=== PATIENT | male | born 1995 | race Caucasian/White ===

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

== ENCOUNTER 2017-07-15 15:00 | Emergency (ER) | payer MEDICAID ==
--- NOTE | 2017-07-15 15:21 | EDM.PDOCBH ---
ED HPI GENERAL MEDICAL PROBLEM - General Chief Complaint: Drug or Alcohol Abuse Stated Complaint: SEIZURE Time Seen by Provider: 07/15/17 15:00 Source of Information: Reports: Patient, Family History Limitations: Reports: No Limitations - History of Present Illness INITIAL COMMENTS - FREE TEXT/NARRATIVE: 21-year-old male has been feeling very anxious, muscle cramps, tremulous since doing some concentrated marijuana several hours earlier. This is happened to him "many times before". He does not feel short of breath. He is hyperventilating. No nausea or vomiting. He feels like his muscles hurt all over. Onset: Unknown/Unsure Duration: Hour(s): (Symptoms have been ongoing for the last 2 hours) Location: Reports: Generalized Severity: Moderate Associated Symptoms: Reports: Malaise, Other (Very anxious). Denies: Fever/ Chills, Headaches, Shortness of Breath Left Arm Pain Score (Numeric/FACES): 8 - Related Data Allergies Allergy/AdvReac Type Severity Reaction Status Date / Time No Known Allergies Allergy Verified 06/21/15 13:48 Home Meds: Home Meds FLUoxetine HCl [Fluoxetine HCl] 20 mg PO DAILY 06/21/15 [History] Past Medical History Musculoskeletal History: Reports: Other (See Below) Other Musculoskeletal History: CP Neurological History: Reports: Cerebral Palsy, Migraines Psychiatric History: Reports: Anxiety, Depression, Suicidal Ideation - Past Surgical History Cardiovascular Surgical History: Reports: Other (See Below) Musculoskeletal Surgical History: Reports: Other (See Below) Social & Family History - Tobacco Use Smoking Status *Q: Never Smoker Second Hand Smoke Exposure: No - Alcohol Use Days Per Week of Alcohol Use: 0 - Recreational Drug Use Recreational Drug Use: Yes Recreational Drug Type: Reports: Marijuana/Hashish Recreational Drug Use Frequency: Weekly ED ROS GENERAL - Review of Systems Review Of Systems: See Below Constitutional: Reports: Malaise. Denies: Fever, Chills HEENT: Reports: No Symptoms Respiratory: Denies: Shortness of Breath, Cough Cardiovascular: Reports: Palpitations. Denies: Chest Pain GI/Abdominal: Denies: Abdominal Pain, Nausea, Vomiting : Reports: No Symptoms Musculoskeletal: Reports: Muscle Pain Skin: Reports: No Symptoms Neurological: Denies: Headache Psychiatric: Reports: Anxiety ED EXAM, BEHAVIORAL HEALTH - Physical Exam Exam: See Below Exam Limited By: No Limitations General Appearance: Alert, Anxious, Mild Distress (Patient appears very uncomfortable) Eye Exam: Bilateral Eye: Other (Bilateral scleral injection) Head: Atraumatic Respiratory/Chest: No Respiratory Distress, Lungs Clear Cardiovascular: Tachycardia GI/Abdominal: Non-Tender Extremities: Normal Inspection. No: Pedal Edema Neurological: Alert, Oriented x 3 Psychiatric: Tearful, Agitated COURSE, BEHAVIORAL HEALTH COMP - Course Vital Signs: Last Vital Signs Temp 99.0 F 07/15/17 15:04 Pulse 118 H 07/15/17 15:34 Resp 26 H 07/15/17 15:34 BP 153/81 H 07/15/17 15:34 Pulse Ox 97 07/15/17 15:34 Orders, Labs, Meds: Laboratory Tests 07/15/17 Range/Units 15:14 Puncture Site Lt.radial ABG pH 7.576 H (7.350-7.450) ABG pCO2 24.1 L (35.0-42.0) mmHg ABG pO2 115.0 H (75.0-100.0) mmHg ABG HCO3 22.4 (22.0-26.0) mmol/L ABG Total CO2 18.4 L (23.0-27.0) mmol/L ABG O2 Saturation 99.3 H (95.0-98.0) % ABG O2 Content 22.4 (15.0-23.0) %vol ABG Base Excess 2.4 mm/L ABG Hemoglobin 16.2 (13.5-18.0) g/dL ABG Oxyhemoglobin 97.6 % ABG Carboxyhemoglobin 1.1 (0.0-1.6) % ABG Methemoglobin 0.6 % Gallito Test Passed O2 Delivery Device Room air Medications Discontinued Medications Generic Name Dose Route Start Last Admin Trade Name Freq PRN Reason Stop Dose Admin Lorazepam 1 mg 07/15/17 15:35 07/15/17 15:50 Ativan IM 07/15/17 15:36 1 mg ONETIME ONE Administration Re-Assessment/Re-Exam: Patient was offered a paper bag for rebreathing and ABGs were obtained. ABGs confirmed hyperventilation. Patient did start to improve but still remained pretty agitated so he was given 1 mg of Ativan IM. Was discharged to care of his mother. Departure - Departure Time of Disposition: 15:56 Disposition: Home, Self-Care 01 Condition: Fair Clinical Impression: Acute hyperventilation syndrome, Cannabis abuse - Discharge Information Instructions: Hyperventilation, Cannabis Use Disorder Referrals: Benitez Aguilar MD [Primary Care Provider] - Forms: ED Department Discharge Care Plan Goals: Rest this afternoon and avoid drug abuse in the future.
[2017-07-15] MEDS ORDERED: LORazepam 2 MG/ML MDV IM ONE (15:35)
[2017-07-15 15:37] VITALS: BP 153/81
== END 2017-07-15 15:56 | disposition home or self-care (01) ==
LOC: JP.ED 15:00
DX: F45.8 Other somatoform disorders (principal); F12.10 Cannabis abuse, uncomplicated
CPT/HCPCS: 36600; 82803; 96372; 99285; J2060

== ENCOUNTER 2018-01-03 23:30 | Emergency (ER) | payer MEDICAID, MEDICARE ==
--- NOTE | 2018-01-04 00:20 | EDM.PDOC ---
ED HPI GENERAL MEDICAL PROBLEM - General Chief Complaint: ENT Problem Stated Complaint: MEDICAL Time Seen by Provider: 01/03/18 23:32 Source of Information: Reports: Patient, Family (Sister) History Limitations: Reports: No Limitations - History of Present Illness INITIAL COMMENTS - FREE TEXT/NARRATIVE: Uvula swollen: This is a 22 year old male presents to ER with his Sister, reports he was painting on canvas this evening, when he has a sudden onset of uvula swelling. He reports he googled swollen uvula, became concerns and came to ER for evaluation. mouth; sudden onset of uvula edema approximately 1.5 hours before arrival, denies throat tightness or feeling of airway tightness denies voice changes denies fever or chills denies exposure to strep or other illness, no family members are ill. denies any allergies. Onset: Sudden Onset Date: 01/03/18 Onset Time: 22:00 Duration: Hour(s):, Constant Location: Reports: Other (uvula) Quality: Reports: Other (edema without pain.) Severity: Moderate Improves with: Reports: None Worsens with: Reports: None Associated Symptoms: Reports: No Other Symptoms uvula Pain Score (Numeric/FACES): 5 - Related Data Allergies Allergy/AdvReac Type Severity Reaction Status Date / Time No Known Allergies Allergy Verified 01/03/18 23:43 Home Meds: Home Meds NK [No Known Home Meds] 01/03/18 [History] Past Medical History Respiratory History: Reports: Other (See Below) Other Respiratory History: RSV A BABY Gastrointestinal History: Reports: Gastritis, Helicobacter Pylori Musculoskeletal History: Reports: Other (See Below) Other Musculoskeletal History: CP Neurological History: Reports: Cerebral Palsy, Migraines Psychiatric History: Reports: Anxiety, Depression, Suicidal Ideation - Past Surgical History Cardiovascular Surgical History: Reports: Other (See Below) Musculoskeletal Surgical History: Reports: Other (See Below) Other Musculoskeletal Surgeries/Procedures:: LEG surgery Social & Family History - Family History Family Medical History: Noncontributory - Tobacco Use Smoking Status *Q: Current Every Day Smoker Years of Tobacco use: 1 Packs/Tins Daily: 0.5 - Caffeine Use Caffeine Use: Reports: Soda - Recreational Drug Use Recreational Drug Use: No - Living Situation & Occupation Living situation: Reports: Single, with Family (lives one block from the hospital.) ED ROS ENT - Review of Systems Review Of Systems: See Below Constitutional: Reports: Other (swollen uvula.) HEENT: Reports: Throat Swelling (uvula only. no tonsillar edema or exudate) Respiratory: Reports: No Symptoms Cardiovascular: Reports: No Symptoms Endocrine: Reports: No Symptoms GI/Abdominal: Reports: No Symptoms : Reports: No Symptoms Musculoskeletal: Reports: No Symptoms Skin: Reports: No Symptoms Neurological: Reports: No Symptoms Psychiatric: Reports: Anxiety (concerns of bad outcome after "Google" symptoms.) Hematologic/Lymphatic: Reports: No Symptoms Immunologic: Reports: No Symptoms ED EXAM, ENT - Physical Exam Exam: See Below Exam Limited By: No Limitations General Appearance: Alert, WD/WN, No Apparent Distress, Thin Eye Exam: Bilateral Eye: Normal Inspection Ears: Normal External Exam, Normal Canal, Hearing Grossly Normal, Normal TMs Nose: Normal Inspection, Normal Mucousa, No Blood Mouth/Throat: Normal Gums, Normal Lips, Normal Teeth, Uvular Edema (uvula is bright red and edematous, no exudate, touching the tongue. voice normal.) Head: Atraumatic, Normocephalic Neck: Normal Inspection, Supple, Non-Tender, Full Range of Motion Respiratory/Chest: No Respiratory Distress, Lungs Clear, Normal Breath Sounds, No Accessory Muscle Use, Chest Non-Tender Cardiovascular: Normal Peripheral Pulses, Regular Rate, Rhythm, No Edema, No Gallop, No JVD, No Murmur, No Rub GI/Abdominal: Normal Bowel Sounds, Soft, Non-Tender Back: Normal Inspection, Full Range of Motion Extremities: Normal Inspection, Normal Range of Motion, Non-Tender, No Pedal Edema, Normal Capillary Refill Neurological: Alert, Oriented, CN II-XII Intact, Normal Cognition, Normal Gait, Normal Reflexes, No Motor/Sensory Deficits Psychiatric: Normal Affect, Anxious Skin: Warm, Dry, Intact, Normal Color, No Rash Lymphatic: No Adenopathy Course - Vital Signs Last Recorded V/S: Last Vital Signs Temp 36.8 C 01/03/18 23:45 Pulse 72 01/03/18 23:45 Resp 16 01/03/18 23:45 BP 180/106 H 01/03/18 23:45 Pulse Ox 98 01/03/18 23:45 - Orders/Labs/Meds Orders: Active Orders 24 hr Category Date Time Status STREP SCRN A RAPID W CULT CONF [RM] Stat Lab 01/03/18 23:42 Ordered cefTRIAXone [Rocephin] 1 gm Med 01/04/18 00:10 Active Sodium Chloride 0.9% [Normal Saline] 50 ml IV ONETIME Medication Orders Ceftriaxone Sodium 1 gm/ (Sodium Chloride) 50 mls @ 100 mls/hr IV ONETIME ONE Stop: 01/04/18 00:39 Last Admin: 01/04/18 00:29 Dose: 100 mls/hr Meds: Medications Generic Name Dose Route Start Last Admin Trade Name Freq PRN Reason Stop Dose Admin Ceftriaxone Sodium 1 gm/ 50 mls @ 100 mls/hr 01/04/18 00:10 01/04/18 00:29 Sodium Chloride IV 01/04/18 00:39 100 mls/hr ONETIME ONE Administration Discontinued Medications Generic Name Dose Route Start Last Admin Trade Name Freq PRN Reason Stop Dose Admin Diphenhydramine HCl 25 mg 01/04/18 00:10 01/04/18 00:27 Benadryl IVPUSH 01/04/18 00:11 25 mg ONETIME ONE Administration Methylprednisolone Sodium Succinate 125 mg 01/04/18 00:10 01/04/18 00:25 Solu-Medrol IVPUSH 01/04/18 00:11 125 mg ONETIME ONE Administration - Re-Assessments/Exams Free Text/Narrative Re-Assessment/Exam: 01/04/18 00:23 discussed with Osmany and his Sister, will treat for both bacteria or allergic reaction causing uvula edema. medications; IV Benadryl 25 mg., IV soludmedrol 125mg, IV Rocephin. labs; rapid strep pending. Osmany and Sister agree with plan of care. 01/04/18 00:37 rapid strep negative, await throat culture will discharge to home with Medrol dose pack, benadryl 25mg po every 6 hrs, keflex 500mg tid x 7days. advised to follow up with Primary Care on Friday, return to ER sooner for any changes or concerns. Departure - Departure Time of Disposition: 00:41 Disposition: Home, Self-Care 01 Condition: Good Clinical Impression: Uvular edema - Discharge Information *PRESCRIPTION DRUG MONITORING PROGRAM REVIEWED*: Not Applicable Referrals: PCP,None [Primary Care Provider] - Forms: ED Department Discharge Care Plan Goals: Uvula edema -rapid strep negative, throat culture pending will treat for bacteria vs allergic response. -Medrol dose pack, start in morning, take as directed -Benadryl 25mg take one every 6 hours for next 2 days then as needed -Keflex 500mg po three times a day for 7 days -advised on soft bland diet, no crunchy, salty, spicy, acid foods, drinks or snacks for 3 days, then advance diet as tolerated. Follow up in Primary Care for recheck on Friday, return to ER for any increased swelling, pain, fever,chills, rash, nausea, vomiting or not improved - Problem List & Annotations (1) Uvular edema SNOMED Code(s): 705244593 Code(s): K13.79 - OTHER LESIONS OF ORAL MUCOSA Status: Acute Priority: High Current Visit: Yes - Problem List Review Problem List Initiated/Reviewed/Updated: Yes - My Orders Last 24 Hours: My Active Orders 01/03/18 23:42 STREP SCRN A RAPID W CULT CONF [RM] Stat 01/04/18 00:10 cefTRIAXone [Rocephin] 1 gm Sodium Chloride 0.9% [Normal Saline] 50 ml IV ONETIME - Assessment/Plan Last 24 Hours: My Active Orders 01/03/18 23:42 STREP SCRN A RAPID W CULT CONF [RM] Stat 01/04/18 00:10 cefTRIAXone [Rocephin] 1 gm Sodium Chloride 0.9% [Normal Saline] 50 ml IV ONETIME Plan: Uvula edema -rapid strep negative, will await throat culture will treat for bacteria vs allergic -Medrol dose pack, start in morning, take as directed -Benadryl 25mg take one every 6 hours for next 2 days then as needed -Keflex 500mg po three times a day for 7 days -advised on soft bland diet, no crunchy, salty, spicy, acid foods, drinks or snacks for 3 days, then advance diet as tolerated. Follow up in Primary Care for recheck on Friday, return to ER for any increased swelling, pain, fever,chills, rash, nausea, vomiting or not improved
[2018-01-04] MEDS: methylPREDNISolone Sodium Succinate 125 MG/2 ML SDV IVPUSH ONE (00:25)
[2018-01-04] MEDS: diphenhydrAMINE 50 MG/ML SDV IVPUSH ONE (00:27)
[2018-01-04] MEDS: cefTRIAXone 1 GM in Sodium Chloride 0.9% 50 ML IV ONE (00:29)
[2018-01-04 00:52] VITALS: BP 180/106
== END 2018-01-04 01:05 | disposition home or self-care (01) ==
LOC: JP.ED 23:30
DX: R60.0 Localized edema (principal); F17.210 Nicotine dependence, cigarettes, uncomplicated
CPT/HCPCS: 87081; 87430; 96365; 96375; 99284; J0696; J1200; J2930; J7050

== ENCOUNTER 2018-10-10 22:22 | Emergency (ER) | payer MEDICARE, MEDICAID ==
[2018-10-10 22:43] VITALS: BP 186/157
--- NOTE | 2018-10-10 22:57 | EDM.PDOC ---
ED HPI GENERAL MEDICAL PROBLEM - General Chief Complaint: Back Pain or Injury Stated Complaint: BACK/HIP PAIN NOT AN ACCIDENT Time Seen by Provider: 10/10/18 22:45 Source of Information: Reports: Patient History Limitations: Reports: No Limitations - History of Present Illness INITIAL COMMENTS - FREE TEXT/NARRATIVE: pt is having severe muscle spasm particularly on the rt side of his body. The is has been going on for the past 36 hours. He is going to the br frequently and then he is not voiding. He has not been drinking water for the past 2 weeks. He does have urethral discharge. He denies recent sexual activity. Onset: Other (last 2 days. ) Duration: Hour(s): Location: Reports: Back, Upper Extremity, Right, Lower Extremity, Right Associated Symptoms: Reports: No Other Symptoms low back Pain Score (Numeric/FACES): 7 - Related Data Allergies Allergy/AdvReac Type Severity Reaction Status Date / Time No Known Allergies Allergy Verified 05/07/18 15:40 Home Meds: Home Meds NK [No Known Home Meds] 01/03/18 [History] Past Medical History Cardiovascular History: Reports: None Respiratory History: Reports: Other (See Below) Other Respiratory History: RSV A BABY Gastrointestinal History: Reports: Gastritis, Helicobacter Pylori Musculoskeletal History: Reports: Other (See Below) Other Musculoskeletal History: CP Neurological History: Reports: Cerebral Palsy, Migraines Psychiatric History: Reports: Anxiety, Depression, Suicidal Ideation - Past Surgical History Head Surgeries/Procedures: Reports: None Cardiovascular Surgical History: Reports: Other (See Below) Respiratory Surgical History: Reports: None GI Surgical History: Reports: None Neurological Surgical History: Reports: None Musculoskeletal Surgical History: Reports: Other (See Below) Other Musculoskeletal Surgeries/Procedures:: LEG surgery Dermatological Surgical History: Reports: None Social & Family History - Family History Family Medical History: Noncontributory - Tobacco Use Smoking Status *Q: Current Every Day Smoker Years of Tobacco use: 2 Packs/Tins Daily: 1 - Caffeine Use Caffeine Use: Reports: Energy Drinks, Soda - Alcohol Use Days Per Week of Alcohol Use: 2 Number of Drinks Per Day: 6 Total Drinks Per Week: 12 - Recreational Drug Use Recreational Drug Use: Yes Drug Use in Last 12 Months: Yes Recreational Drug Type: Reports: Ecstasy, Marijuana/Hashish Recreational Drug Use Frequency: Weekly - Living Situation & Occupation Living situation: Reports: Single, with Family (lives one block from the hospital.) ED ROS GENERAL - Review of Systems Review Of Systems: See Below Constitutional: Reports: No Symptoms HEENT: Reports: No Symptoms Respiratory: Reports: No Symptoms Cardiovascular: Reports: No Symptoms Endocrine: Reports: No Symptoms GI/Abdominal: Reports: No Symptoms : Reports: Dysuria, Frequency, Other ( penile discharge. ) Musculoskeletal: Reports: Muscle Pain, Other (pt is having marked muscle spasm. ) Skin: Reports: No Symptoms ED EXAM, UPPER BACK/NECK PAIN - Physical Exam Exam: See Below Text/Narrative:: pt is very agitated appearing. He is having marked muscle spasm in the upper and lower rt extremities. He has urinary frequency and then he is not able to void when he gets there. He did take ectascy yesterday. He also has been taking extra adderal. Exam Limited By: No Limitations General Appearance: Alert, Moderate Distress Ears Exam: Normal TMs Nose Exam: Normal Inspection Throat/Mouth Exam: Normal Inspection Head Exam: Atraumatic Neck Exam: Non-Tender Cardiovascular/Respiratory: Regular Rate, Rhythm GI/Abdominal: Soft, Non-Tender (Male) Exam: Other (pt has discharge from the penis a GC and chlamydia culture was done. ) Rectal (Males) Exam: Deferred Back Exam: Muscle Spasm Extremities: Normal Inspection, Other (muscle spasm. ) Neurologic: Alert, Oriented x 3 Psychiatric: Anxious, Other (pt is spacing and appears not to be able to relax. ) Course - Vital Signs Last Recorded V/S: Last Vital Signs Temp 37.6 C 10/10/18 22:41 Pulse 99 10/10/18 22:41 Resp 20 10/10/18 22:41 BP 186/157 H 10/10/18 22:41 Pulse Ox 100 10/10/18 22:41 - Orders/Labs/Meds Orders: Active Orders 24 hr Category Date Time Status Bladder Scan [RC] ASDIRECTED Care 10/10/18 23:35 Active CHLAMYDIA/GC AMPLIFICATION Stat Lab 10/11/18 00:14 Received CULTURE URINE [RM] Stat Lab 10/11/18 00:05 Received Sodium Chloride 0.9% [Normal Saline] 1,000 ml Med 10/10/18 23:30 Active IV ASDIRECTED Sodium Chloride 0.9% [Normal Saline] 1,000 ml Med 10/10/18 23:45 Active IV ASDIRECTED Medication Orders Sodium Chloride (Normal Saline) 1,000 mls @ 999 mls/hr IV ASDIRECTED NÉSTOR Last Admin: 10/10/18 23:41 Dose: 999 mls/hr Sodium Chloride (Normal Saline) 1,000 mls @ 999 mls/hr IV ASDIRECTED NÉSTOR Last Admin: 10/11/18 00:42 Dose: 999 mls/hr Labs: Laboratory Tests 10/10/18 10/10/18 10/11/18 Range/Units 23:00 23:00 00:10 WBC 10.5 (4.5-11.0) K/uL RBC 5.54 (4.30-5.90) M/uL Hgb 16.2 H (12.0-15.0) g/dL Hct 47.6 (40.0-54.0) % MCV 86 (80-98) fL MCH 29 (27-31) pg MCHC 34 (32-36) % Plt Count 252 (150-400) K/uL Neut % (Auto) 63 (36-66) % Lymph % (Auto) 26 (24-44) % Moca % (Auto) 9 H (2-6) % Eos % (Auto) 2 (2-4) % Baso % (Auto) 0 (0-1) % Sodium 140 (140-148) mmol/L Potassium 4.3 (3.6-5.2) mmol/L Chloride 103 (100-108) mmol/L Carbon Dioxide 26 (21-32) mmol/L Anion Gap 10.7 (5.0-14.0) mmol/L BUN 12 (7-18) mg/dL Creatinine 1.1 (0.8-1.3) mg/dL Est Cr Clr Drug Dosing 103.48 mL/min Estimated GFR (MDRD) > 60 (>60) Glucose 99 (74-106) mg/dL Calcium 9.5 (8.5-10.1) mg/dL Total Bilirubin 1.1 H (0.2-1.0) mg/dL AST 28 (15-37) U/L ALT 76 D (12-78) U/L Alkaline Phosphatase 96 (46-116) U/L Total Protein 8.0 (6.4-8.2) g/dL Albumin 4.6 (3.4-5.0) g/dL Globulin 3.4 (2.3-3.5) g/dL Albumin/Globulin Ratio 1.4 (1.2-2.2) Urine Color Yellow Urine Appearance Clear Urine pH 5.0 (4.5-8.0) Ur Specific [place] 1.025 (1.008-1.030) Urine Protein Negative (NEGATIVE) mg/dL Urine Glucose (UA) Normal (NEGATIVE) mg/dL Urine Ketones Negative (NEGATIVE) mg/dL Urine Occult Blood Negative (NEGATIVE) Urine Nitrite Negative (NEGAITVE) Urine Bilirubin Negative (NEGATIVE) Urine Urobilinogen Normal (NORMAL) mg/dL Ur Leukocyte Esterase Negative (NEGATIVE) Urine RBC 0-5 (0-5) Urine WBC 5-10 H (0-5) Ur Epithelial Cells Rare Amorphous Sediment Not seen Urine Bacteria Few Urine Mucus Not seen Urine Opiates Screen (NEGATIVE) Ur Oxycodone Screen (NEGATIVE) Urine Methadone Screen (NEGATIVE) Ur Propoxyphene Screen (NEGATIVE) Ur Barbiturates Screen (NEGATIVE) Ur Tricyclics Screen (NEGATIVE) Ur Phencyclidine Scrn (NEGATIVE) Ur Amphetamine Screen (NEGATIVE) U Methamphetamines Scrn (NEGATIVE) Urine MDMA Screen (NEGATIVE) U Benzodiazepines Scrn (NEGATIVE) U Cocaine Metab Screen (NEGATIVE) U Marijuana (THC) Screen (NEGATIVE) 10/11/18 Range/Units 00:10 WBC (4.5-11.0) K/uL RBC (4.30-5.90) M/uL Hgb (12.0-15.0) g/dL Hct (40.0-54.0) % MCV (80-98) fL MCH (27-31) pg MCHC (32-36) % Plt Count (150-400) K/uL Neut % (Auto) (36-66) % Lymph % (Auto) (24-44) % Moca % (Auto) (2-6) % Eos % (Auto) (2-4) % Baso % (Auto) (0-1) % Sodium (140-148) mmol/L Potassium (3.6-5.2) mmol/L Chloride (100-108) mmol/L Carbon Dioxide (21-32) mmol/L Anion Gap (5.0-14.0) mmol/L BUN (7-18) mg/dL Creatinine (0.8-1.3) mg/dL Est Cr Clr Drug Dosing mL/min Estimated GFR (MDRD) (>60) Glucose (74-106) mg/dL Calcium (8.5-10.1) mg/dL Total Bilirubin (0.2-1.0) mg/dL AST (15-37) U/L ALT (12-78) U/L Alkaline Phosphatase (46-116) U/L Total Protein (6.4-8.2) g/dL Albumin (3.4-5.0) g/dL Globulin (2.3-3.5) g/dL Albumin/Globulin Ratio (1.2-2.2) Urine Color Urine Appearance Urine pH (4.5-8.0) Ur Specific [place] (1.008-1.030) Urine Protein (NEGATIVE) mg/dL Urine Glucose (UA) (NEGATIVE) mg/dL Urine Ketones (NEGATIVE) mg/dL Urine Occult Blood (NEGATIVE) Urine Nitrite (NEGAITVE) Urine Bilirubin (NEGATIVE) Urine Urobilinogen (NORMAL) mg/dL Ur Leukocyte Esterase (NEGATIVE) Urine RBC (0-5) Urine WBC (0-5) Ur Epithelial Cells Amorphous Sediment Urine Bacteria Urine Mucus Urine Opiates Screen Negative (NEGATIVE) Ur Oxycodone Screen Negative (NEGATIVE) Urine Methadone Screen Negative (NEGATIVE) Ur Propoxyphene Screen Negative (NEGATIVE) Ur Barbiturates Screen Negative (NEGATIVE) Ur Tricyclics Screen Negative (NEGATIVE) Ur Phencyclidine Scrn Negative (NEGATIVE) Ur Amphetamine Screen Presumptive positive H (NEGATIVE) U Methamphetamines Scrn Presumptive positive H (NEGATIVE) Urine MDMA Screen Negative (NEGATIVE) U Benzodiazepines Scrn Negative (NEGATIVE) U Cocaine Metab Screen Negative (NEGATIVE) U Marijuana (THC) Screen Presumptive positive H (NEGATIVE) Meds: Medications Generic Name Dose Route Start Last Admin Trade Name Freq PRN Reason Stop Dose Admin Sodium Chloride 1,000 mls @ 999 mls/hr 10/10/18 23:30 10/10/18 23:41 Normal Saline IV 999 mls/hr ASDIRECTED NÉSTOR Administration Sodium Chloride 1,000 mls @ 999 mls/hr 10/10/18 23:45 10/11/18 00:42 Normal Saline IV 999 mls/hr ASDIRECTED NÉSTOR Administration Discontinued Medications Generic Name Dose Route Start Last Admin Trade Name Freq PRN Reason Stop Dose Admin Baclofen 10 mg 10/10/18 23:23 10/10/18 23:43 Lioresal PO 10/10/18 23:24 10 mg ONETIME ONE Administration Ceftriaxone Sodium 1 gm/ 50 mls @ 100 mls/hr 10/11/18 01:06 Sodium Chloride IV 10/11/18 01:35 ONETIME ONE Ketorolac Tromethamine 60 mg 10/10/18 23:25 Toradol IM 10/10/18 23:26 ONETIME ONE Ketorolac Tromethamine 30 mg 10/10/18 23:26 10/10/18 23:45 Toradol IVPUSH 10/10/18 23:27 30 mg ONETIME ONE Administration Lorazepam 0.5 mg 10/11/18 00:12 10/11/18 00:42 Ativan PO 10/11/18 00:13 0.5 mg ONETIME ONE Administration - Re-Assessments/Exams Free Text/Narrative Re-Assessment/Exam: 10/11/18 01:41 pt was hydrated with 2 liters of fluid. He was given belofen and torodol and did get some relief. He has a chlamydia and GC culture pending. He has a urine culture pending. Departure - Departure Time of Disposition: 01:37 Disposition: Home, Self-Care 01 Condition: Fair Clinical Impression: Dehydration, Urethritis, UTI (urinary tract infection), Drug abuse - Discharge Information Referrals: PCP,None [Primary Care Provider] - Forms: ED Department Discharge Care Plan Goals: push fluids, baclofen 10mg bid to relax muscles, doxycyline 100mg bid for [address] - My Orders Last 24 Hours: My Active Orders 10/10/18 23:30 Sodium Chloride 0.9% [Normal Saline] 1,000 ml IV ASDIRECTED 10/10/18 23:35 Bladder Scan [RC] ASDIRECTED 10/10/18 23:45 Sodium Chloride 0.9% [Normal Saline] 1,000 ml IV ASDIRECTED 10/11/18 00:05 CULTURE URINE [RM] Stat 10/11/18 00:14 CHLAMYDIA/GC AMPLIFICATION Stat - Assessment/Plan Last 24 Hours: My Active Orders 10/10/18 23:30 Sodium Chloride 0.9% [Normal Saline] 1,000 ml IV ASDIRECTED 10/10/18 23:35 Bladder Scan [RC] ASDIRECTED 10/10/18 23:45 Sodium Chloride 0.9% [Normal Saline] 1,000 ml IV ASDIRECTED 10/11/18 00:05 CULTURE URINE [RM] Stat 10/11/18 00:14 CHLAMYDIA/GC AMPLIFICATION Stat
[2018-10-10] MEDS ORDERED: Baclofen 10 MG Tab PO ONE (23:23)
[2018-10-10] MEDS ORDERED: Ketorolac 60 MG/2 ML SDV IM ONE (23:25)
[2018-10-10] MEDS ORDERED: Ketorolac 30 MG/ML SDV IVPUSH ONE (23:26)
[2018-10-10] MEDS ORDERED: Sodium Chloride 0.9% 1,000 ML IV SCH ×2 (23:30→23:45)
[2018-10-11] MEDS ORDERED: LORazepam 0.5 MG Tab PO ONE (00:12)
[2018-10-11] MEDS ORDERED: cefTRIAXone 1 GM in Sodium Chloride 0.9% 50 ML IV ONE (01:06)
[2018-10-14 01:08] LABS: CHLAMYDIA TRACHOMATIS, NAA Positive (Negative); NEISSERIA GONORRHOEAE, NAA Negative (Negative)
== END 2018-10-11 01:50 | disposition home or self-care (01) ==
LOC: JP.ED 22:22
DX: N34.2 Other urethritis (principal); F17.210 Nicotine dependence, cigarettes, uncomplicated; E86.0 Dehydration; F15.10 Other stimulant abuse, uncomplicated
CPT/HCPCS: 36415; 51798; 80053; 80305; 81001; 85025; 87086; 87491; 87591; 99283; A9270; J1885; J7030

== ENCOUNTER 2019-06-18 23:48 | Emergency (ER) | payer MEDICAID, MEDICARE ==
[2019-06-19 00:15] VITALS: BP 159/97; PULSE 104
--- NOTE | 2019-06-19 00:29 | EDM.PDOC ---
ED HPI GENERAL MEDICAL PROBLEM - General Chief Complaint: Upper Extremity Injury/Pain Stated Complaint: NO FEELING IN LEFT ARM Time Seen by Provider: 06/19/19 00:20 Source of Information: Reports: Patient History Limitations: Reports: No Limitations - History of Present Illness INITIAL COMMENTS - FREE TEXT/NARRATIVE: Patient presents for evaluation of left shoulder and arm pain and tingling after falling on slippery steps outside and bracing his fall with his left arm. He was going down some steps and slipped on the falling toward the steps but putting his left arm out behind him and to the side to keep from landing on the edge of the steps. This occurred approximately 2345 hours on 18 June. He feels pain in the proximal portion of the arm, that is the humerus region. There is also pain and what he says is numbness but what he means is tingling sensations across the proximal arm and superior area of left shoulder region. His ring and little finger have some pain and tingling feeling, the ring finger more so. He did not injure the right arm and shoulder at all. He is left-handed and he is able to use his arm and in fact was holding his cell phone in his left hand and texting with his right hand when I entered the room. He has no limitation of motion. He does have a history of cerebral palsy. He has not taken anything for the arm symptoms tonight. No other injuries as a result of his fall. - Related Data Allergies Allergy/AdvReac Type Severity Reaction Status Date / Time No Known Allergies Allergy Verified 05/07/18 15:40 Home Meds: Home Meds NK [No Known Home Meds] 01/03/18 [History] Past Medical History Cardiovascular History: Reports: None Respiratory History: Reports: Other (See Below) Other Respiratory History: RSV A BABY Gastrointestinal History: Reports: Gastritis, Helicobacter Pylori Musculoskeletal History: Reports: Other (See Below) Other Musculoskeletal History: CP Neurological History: Reports: Cerebral Palsy, Migraines Psychiatric History: Reports: Anxiety, Depression, Suicidal Ideation - Past Surgical History Head Surgeries/Procedures: Reports: None Cardiovascular Surgical History: Reports: Other (See Below) Respiratory Surgical History: Reports: None GI Surgical History: Reports: None Neurological Surgical History: Reports: None Musculoskeletal Surgical History: Reports: Other (See Below) Other Musculoskeletal Surgeries/Procedures:: LEG surgery Dermatological Surgical History: Reports: None Social & Family History - Family History Family Medical History: Noncontributory - Tobacco Use Smoking Status *Q: Former Smoker Used Tobacco, but Quit: Yes Month/Year Tobacco Last Used: 04/2019 - Caffeine Use Caffeine Use: Reports: Soda - Alcohol Use Days Per Week of Alcohol Use: 1 Number of Drinks Per Day: 5 Total Drinks Per Week: 5 - Recreational Drug Use Recreational Drug Use: No - Living Situation & Occupation Living situation: Reports: Single, with Family (lives one block from the hospital.) Review of Systems - Review of Systems Review Of Systems: See Below Constitutional: Reports: No Symptoms Respiratory: Reports: No Symptoms Musculoskeletal: Reports: Shoulder Pain, Hand Pain Neurological: Reports: Tingling (Superior aspect of left shoulder, medial proximal left bicep region, left ring finger.). Denies: Numbness Psychiatric: Reports: Anxiety ED EXAM, GENERAL - Physical Exam Exam: See Below Free Text/Narrative:: He is seated on the bed in room 7 and as noted previously is able to hold onto his cell phone with fingers of the left hand and use the other hand to perform galvez motions. Exam Limited By: No Limitations General Appearance: Alert, Anxious Peripheral Pulses: 4+: Brachial (L), Radial (L) Extremities: Normal Range of Motion, Normal Capillary Refill, Arm Pain ( Palpation of the left shoulder during passive extension and flexion and abduction movements does not show any crepitus. There is pain with palpation along the medial proximal left bicep/tricep region. There is pain on palpation across the left supraspinatus region. 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 There is some minimal discomfort across the humeral head region but my suspicion for fracture is quite low. I discussed using cold packs and anti-inflammatory medication and giving things time to heal. I could tell that that was not a completely satisfactory answer and he requested that we do an x-ray of the shoulder for his further peace of mind. 06/19/19 01:06 On review of the left shoulder x-ray, there is some minimal widening of the acromioclavicular joint but otherwise no acute bony injury. Departure - Departure Time of Disposition: 01:07 Disposition: Home, Self-Care 01 Condition: Good Clinical Impression: Left shoulder strain, Acromioclavicular (joint) (ligament) sprain - Discharge Information *PRESCRIPTION DRUG MONITORING PROGRAM REVIEWED*: Not Applicable *COPY OF PRESCRIPTION DRUG MONITORING REPORT IN PATIENT KANWAL: Not Applicable Instructions: Muscle Strain, [id number] Referrals: PCP,None [Primary Care Provider] - Additional Instructions: It is possible that your shoulder and chest area will be more sore over the next couple of days before it begins to improve. I recommended using cold packs 20 minutes off and on as needed to the painful area. Wear the arm sling to reduce left shoulder movement, including wearing at while you are sleeping at night. Ibuprofen 800 mg 3 times a day or naproxen (Aleve) 440 mg 2 or 3 times a day regularly for the next week will be helpful. If not improving in one week, recheck with primary care. Return to ER if feeling worse in anyway but I would expect symptoms will gradually improve. Sepsis Event Note - Evaluation Sepsis Screening Result: No Definite Risk - Focused Exam Vital Signs: Vital Signs Temp Pulse Resp BP Pulse Ox 06/19/19 00:09 36.7 C 104 H 14 159/97 H 98 Date Exam was Performed: 06/19/19 Time Exam was Performed: 00:20
--- NOTE | 2019-06-19 01:09 | CRLCR ---
Indication: Pain after fall Technique: Two views, 3 films left shoulder Comparison: None Findings: Bones: Alignment is normal. No fractures or bone lesions. Joint spaces: Unremarkable. Soft tissues: Unremarkable. Dictated by Magnus Bah MD @ Jun 19 2019 1:05AM Signed by Dr. Magnus Bah @ Jun 19 2019 1:07AM
== END 2019-06-19 01:24 | disposition home or self-care (01) ==
LOC: JP.ED 23:48
DX: S46.912A Strain of unspecified muscle, fascia and tendon at shoulder and upper arm level, left arm, initial encounter (principal); S43.52XA Sprain of left acromioclavicular joint, initial encounter; Z87.891 Personal history of nicotine dependence; W10.9XXA Fall (on) (from) unspecified stairs and steps, initial encounter; Y93.01 Activity, walking, marching and hiking; Y92.89 Other specified places as the place of occurrence of the external cause
CPT/HCPCS: 73030-LT; 99283; 99283-25

== ENCOUNTER 2019-08-12 01:48 | Emergency (ER) | payer MEDICAID, MEDICARE ==
[2019-08-12 02:20] VITALS: BP 164/98; PULSE 98
--- NOTE | 2019-08-12 02:27 | EDM.PDOC ---
ED HPI GENERAL MEDICAL PROBLEM - General Chief Complaint: Genitourinary Problem Stated Complaint: STD TESTING Time Seen by Provider: 08/12/19 02:20 Source of Information: Reports: Patient, RN Notes Reviewed History Limitations: Reports: No Limitations - History of Present Illness INITIAL COMMENTS - FREE TEXT/NARRATIVE: -23-year-old gentleman presents emergency department today for testing for sexually transmitted disease he had exposure about 2 weeks ago he states over the last week he has had some burning with urination he did have an open sore at the shaft of his penis which now has resolved 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 (see below) Other Treatments SUGAR CANE PLANTING EQUIPMENT OPERATOR: none - Related Data Allergies Allergy/AdvReac Type Severity Reaction Status Date / Time No Known Allergies Allergy Verified 08/12/19 02:10 Home Meds: Home Meds NK [No Known Home Meds] 01/03/18 [History] Past Medical History Respiratory History: Reports: Other (See Below) Other Respiratory History: RSV A BABY Gastrointestinal History: Reports: Gastritis, Helicobacter Pylori Musculoskeletal History: Reports: Other (See Below) Other Musculoskeletal History: CP Neurological History: Reports: Cerebral Palsy, Migraines Psychiatric History: Reports: Anxiety, Depression, Suicidal Ideation - Past Surgical History Head Surgeries/Procedures: Reports: None Cardiovascular Surgical History: Reports: Other (See Below) Respiratory Surgical History: Reports: None GI Surgical History: Reports: None Neurological Surgical History: Reports: None Musculoskeletal Surgical History: Reports: Other (See Below) Other Musculoskeletal Surgeries/Procedures:: LEG surgery Dermatological Surgical History: Reports: None Social & Family History - Family History Family Medical History: Noncontributory - Tobacco Use Smoking Status *Q: Never Smoker Second Hand Smoke Exposure: No - Caffeine Use Caffeine Use: Reports: Soda - Recreational Drug Use Recreational Drug Use: No - Living Situation & Occupation Living situation: Reports: Single, with Family (lives one block from the hospital.) ED ROS PEDIATRIC - Review of Systems Review Of Systems: See Below Constitutional: Denies: Fever HEENT: Reports: No Symptoms Respiratory: Reports: No Symptoms Cardiovascular: Reports: No Symptoms GI/Abdominal: Reports: No Symptoms : Reports: Dysuria (Excuse me) ED EXAM, GENERAL (PEDS) - Physical Exam Exam: See Below Exam Limited By: No Limitations General Appearance: WD/WN, No Apparent Distress Respiratory/Chest: No Respiratory Distress (Male): No Hernia, Normal Inspection, Circumcised, Penile Lesions ( Questionable) Course - Vital Signs Last Recorded V/S: Last Vital Signs Temp 97.6 F 08/12/19 02:17 Pulse 98 08/12/19 02:17 Resp 14 08/12/19 02:17 BP 164/98 H 08/12/19 02:17 Pulse Ox 97 08/12/19 02:17 - Orders/Labs/Meds Orders: Active Orders 24 hr Category Date Time Status CHLAMYDIA/GC AMPLIFICATION Stat Lab 08/12/19 02:35 Received HIV RAPID SCREEN RLFX COMFIRM [CHEM] Stat Lab 08/12/19 02:35 Received HSV 1/2 PCR Urgent Lab 08/12/19 02:35 Received Labs: Laboratory Tests 08/12/19 Range/Units 02:25 Urine Color Yellow (YELLOW) Urine Appearance Clear (CLEAR) Urine pH 6.0 (5.0-8.0) Ur Specific [place] 1.025 (1.008-1.030) Urine Protein Negative (NEGATIVE) mg/dL Urine Glucose (UA) Negative (NEGATIVE) mg/dL Urine Ketones Negative (NEGATIVE) mg/dL Urine Occult Blood Negative (NEGATIVE) Urine Nitrite Negative (NEGATIVE) Urine Bilirubin Negative (NEGATIVE) Urine Urobilinogen 0.2 (0.2-1.0) EU/dL Ur Leukocyte Esterase Negative (NEGATIVE) Urine RBC 0-5 (0-5) Urine WBC 0-5 (0-5) Ur Epithelial Cells Rare Amorphous Sediment Not seen Urine Bacteria Few Urine Mucus Not seen Departure - Departure Time of Disposition: 03:16 Disposition: Home, Self-Care 01 Condition: Fair Clinical Impression: STD exposure - Discharge Information Instructions: Sexually Transmitted Disease, [id number] Referrals: PCP,None [Primary Care Provider] - Forms: ED Department Discharge Additional Instructions: Please followup with your primary care provider in 3-5 days if not better, please call return to the emergency department with worsening of symptoms. Sepsis Event Note - Evaluation Sepsis Screening Result: No Definite Risk - Focused Exam Vital Signs: Vital Signs Temp Pulse Resp BP Pulse Ox 08/12/19 02:17 97.6 F 98 14 164/98 H 97 Date Exam was Performed: 08/12/19 Time Exam was Performed: 03:15 - My Orders Last 24 Hours: My Active Orders 08/12/19 02:35 CHLAMYDIA/GC AMPLIFICATION Stat HIV RAPID SCREEN RLFX COMFIRM [CHEM] Stat HSV 1/2 PCR Urgent - Assessment/Plan Last 24 Hours: My Active Orders 08/12/19 02:35 CHLAMYDIA/GC AMPLIFICATION Stat HIV RAPID SCREEN RLFX COMFIRM [CHEM] Stat HSV 1/2 PCR Urgent Plan: Assessment Acuity = acute Site and laterality = dysuria Etiology = possible STD exposure Manifestations = none Location of injury = Home Lab values = HIV 1 and 2- urinalysis unremarkable remainder of STD testing is pending Plan Elected to treat empirically 1 g Rocephin 1 g azithromycin follow-up primary care 3 to 5 days if not better This note was dictated using [email or web address] voice recognition software please call with any questions on syntax or grammar.
[2019-08-12] MEDS ORDERED: Azithromycin 250 MG Tab PO ONE (03:15)
[2019-08-12] MEDS ORDERED: cefTRIAXone 1 GM, Lidocaine 1% 2.1 ML IM ONE ×2 (03:15)
[2019-08-14 17:11] LABS: CHLAMYDIA TRACHOMATIS, NAA Negative (Negative); NEISSERIA GONORRHOEAE, NAA Negative (Negative)
[2019-08-17 08:12] LABS: HSV-1 DNA Negative (Negative); HSV-2 DNA Negative (Negative)
== END 2019-08-12 03:45 | disposition home or self-care (01) ==
LOC: JP.ED 01:48
DX: Z20.2 Contact with and (suspected) exposure to infections with a predominantly sexual mode of transmission (principal)
CPT/HCPCS: 81001; 87449; 87491; 87529; 87591; 96372; 99283; A9270; J0696; J2001; 36415; 99282

== ENCOUNTER 2020-07-14 20:05 | Emergency (ER) | payer MEDICARE ==
[2020-07-14] MEDS ORDERED: Aluminum Hydroxide/Magnesium Hydroxide/Simethicone Susp 30 ML Cup PO ONE (20:27)
--- NOTE | 2020-07-14 20:31 | EDM.PDOC ---
ED HPI GENERAL MEDICAL PROBLEM - General Chief Complaint: Abdominal Pain Stated Complaint: MED[facility] Time Seen by Provider: 07/14/20 20:20 Source of Information: Reports: Patient, EMS History Limitations: Reports: No Limitations - History of Present Illness INITIAL COMMENTS - FREE TEXT/NARRATIVE: 24-year-old male brought in by ambulance with left upper quadrant pain for the past hour and a half. He feels like he has to have a bowel movement, so tried a couple suppositories but had no luck so called the ambulance. He looks mildly uncomfortable, no fevers or chills, no nausea or vomiting. Onset: Sudden (Started fairly suddenly an hour and a half ago) Location: Reports: Abdomen (Left upper quadrant) Associated Symptoms: Reports: Malaise, Other (Chronic right arm weakness due to cerebral palsy, able to ambulate). Denies: Fever/Chills, Loss of Appetite, Shortness of Breath LUQ Pain Score (Numeric/FACES): 7 - Related Data Allergies Allergy/AdvReac Type Severity Reaction Status Date / Time No Known Allergies Allergy Verified 07/14/20 20:18 Home Meds: Home Meds NK [No Known Home Meds] 01/03/18 [History] Past Medical History Cardiovascular History: Reports: None Respiratory History: Reports: Other (See Below) Other Respiratory History: RSV A BABY Gastrointestinal History: Reports: Gastritis, Helicobacter Pylori Musculoskeletal History: Reports: Other (See Below) Other Musculoskeletal History: CP Neurological History: Reports: Cerebral Palsy, Migraines Psychiatric History: Reports: Anxiety, Depression, Suicidal Ideation - Past Surgical History Head Surgeries/Procedures: Reports: None Cardiovascular Surgical History: Reports: Other (See Below) Other Cardiovascular Surgeries/Procedures: unknown heart surgery Musculoskeletal Surgical History: Reports: Other (See Below) Other Musculoskeletal Surgeries/Procedures:: LEG surgery Social & Family History - Family History Family Medical History: No Pertinent Family History - Tobacco Use Tobacco Use Status *Q: Current Every Day Tobacco User Years of Tobacco use: 3 Packs/Tins Daily: 0.2 - Caffeine Use Caffeine Use: Reports: Energy Drinks, Soda - Alcohol Use Days Per Week of Alcohol Use: 1 Number of Drinks Per Day: 6 Total Drinks Per Week: 6 - Recreational Drug Use Recreational Drug Use: No - Living Situation & Occupation Living situation: Reports: Single, with Family (lives one block from the hospital.) ED ROS GENERAL - Review of Systems Review Of Systems: See Below Constitutional: Denies: Fever, Chills HEENT: Reports: No Symptoms Respiratory: Reports: No Symptoms GI/Abdominal: Reports: Abdominal Pain, Constipation. Denies: Diarrhea, Nausea, Vomiting : Reports: No Symptoms Skin: Reports: No Symptoms Neurological: Denies: Headache ED EXAM, GI/ABD - Physical Exam Exam: See Below Exam Limited By: No Limitations General Appearance: Alert, No Apparent Distress Eyes: Bilateral: Normal Appearance (No jaundice) Head: Atraumatic Neck: Supple, Non-Tender Respiratory/Chest: Lungs Clear GI/Abdominal Exam: Soft, Tender (Does react with tenderness to palpation around the left upper quadrant, no focal tenderness) Rectal (Males) Exam: Other (Rectal exam is completely normal, completely empty) Neurological: Alert, Oriented Course - Vital Signs Last Recorded V/S: Last Vital Signs Temp 98.1 F 07/14/20 20:16 Pulse 90 07/14/20 20:16 Resp 20 07/14/20 20:16 BP 155/101 H 07/14/20 20:16 Pulse Ox 100 07/14/20 20:16 - Orders/Labs/Meds Meds: Medications Discontinued Medications Generic Name Dose Route Start Last Admin Trade Name Freq PRN Reason Stop Dose Admin Al Hydroxide/Mg Hydroxide 30 ml 07/14/20 20:27 07/14/20 20:31 Mag-Al Plus PO 07/14/20 20:28 30 ml ONETIME ONE Administration - Re-Assessments/Exams Free Text/Narrative Re-Assessment/Exam: 07/14/20 20:31 Explained to the patient that he has no impaction or rectal constipation. He was given 30 cc of Maalox as his pain seems to be more over his stomach. 07/14/20 20:45 15 minutes after the Maalox he felt much better. Still seem to be having some discomfort but the pressure and sharp pain was gone. Encouraged him to try some MiraLAX for the next 1 to 2 days and return if worsening especially if he develops increased pain or fever. Departure - Departure Time of Disposition: 20:55 Disposition: Home, Self-Care 01 Clinical Impression: Abdominal pain Qualifiers: Abdominal location: left upper quadrant Qualified Code(s): R10.12 - Left upper quadrant pain - Discharge Information Instructions: Abdominal Pain, Adult, [id number] Referrals: PCP,None [Primary Care Provider] - Forms: ED Department Discharge Care Plan Goals: Try MiraLAX and antacids for the next 24 to 48 hours and return for recheck if not improving in the next couple days. Return sooner if worsening such as fever, increased pain or vomiting. Sepsis Event Note (ED) - Evaluation Sepsis Screening Result: No Definite Risk - Focused Exam Vital Signs: Vital Signs Temp Pulse Resp BP Pulse Ox 07/14/20 20:16 98.1 F 90 20 155/101 H 100
[2020-07-14 20:38] VITALS: BP 155/101; PULSE 90
== END 2020-07-14 20:55 | disposition home or self-care (01) ==
LOC: JP.ED 20:05
DX: R10.12 Left upper quadrant pain (principal); G80.9 Cerebral palsy, unspecified; Z72.0 Tobacco use
CPT/HCPCS: 99282; 99284; A9270-GY

== ENCOUNTER 2020-08-31 00:49 | Emergency (ER) | payer MEDICAID, MEDICARE ==
[2020-08-31] MEDS ORDERED: Aluminum Hydroxide/Magnesium Hydroxide/Simethicone Susp 30 ML Cup PO ONE (01:18)
--- NOTE | 2020-08-31 01:25 | EDM.PDOC ---
ED HPI GENERAL MEDICAL PROBLEM - General Chief Complaint: General Stated Complaint: LEFT SHOULDER/ARM PAIN Time Seen by Provider: 08/31/20 01:05 Source of Information: Reports: Patient, Family, Old Records, RN History Limitations: Reports: No Limitations - History of Present Illness INITIAL COMMENTS - FREE TEXT/NARRATIVE: 24 yo male here with shoulder pain. He was seen in the clinic and had negative X-rays. He was referred to ortho and has his appt later today. He is here now with his mother after not getting relief from 6 x 200 mg ibuprofen taken on an empty stomach. He does have mild gastric distress now. 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 Pain Score (Numeric/FACES): 7 - Related Data Allergies Allergy/AdvReac Type Severity Reaction Status Date / Time No Known Allergies Allergy Verified 08/31/20 01:06 Home Meds: Home Meds NK [No Known Home Meds] 01/03/18 [History] Past Medical History Cardiovascular History: Reports: None Respiratory History: Reports: Other (See Below) Other Respiratory History: RSV A BABY Gastrointestinal History: Reports: Gastritis, Helicobacter Pylori Musculoskeletal History: Reports: Other (See Below) Other Musculoskeletal History: CP Neurological History: Reports: Cerebral Palsy, Migraines Psychiatric History: Reports: Anxiety, Depression, Suicidal Ideation - Infectious Disease History Infectious Disease History: Reports: Helicobacter Pylori - Past Surgical History Head Surgeries/Procedures: Reports: None Cardiovascular Surgical History: Reports: Other (See Below) Other Cardiovascular Surgeries/Procedures: unknown heart surgery Respiratory Surgical History: Reports: None GI Surgical History: Reports: None Neurological Surgical History: Reports: None Musculoskeletal Surgical History: Reports: Other (See Below) Other Musculoskeletal Surgeries/Procedures:: LEG surgery Dermatological Surgical History: Reports: None Social & Family History - Family History Family Medical History: No Pertinent Family History - Tobacco Use Tobacco Use Status *Q: Current Every Day Tobacco User Years of Tobacco use: 3 Packs/Tins Daily: 0.2 - Caffeine Use Caffeine Use: Reports: Energy Drinks, Soda - Living Situation & Occupation Living situation: Reports: Single, with Family (lives one block from the hospital.) ED ROS GENERAL - Review of Systems Review Of Systems: See Below Constitutional: Reports: No Symptoms HEENT: Reports: No Symptoms Musculoskeletal: Reports: Shoulder Pain (bilateral, L > R) Skin: Reports: No Symptoms Neurological: Reports: No Symptoms ED EXAM, GENERAL - Physical Exam Exam: See Below Exam Limited By: No Limitations General Appearance: Alert, WD/WN, No Apparent Distress Eye Exam: Bilateral Eye: Normal Inspection Ears: Normal External Exam, Normal Canal, Hearing Grossly Normal Ear Exam: Bilateral Ear: Auricle Normal, Canal Normal Nose: Normal Inspection, No Blood Throat/Mouth: Normal Inspection, Normal Lips, Normal Oropharynx, Normal Voice, No Airway Compromise Head: Atraumatic, Normocephalic Neck: Normal Inspection Respiratory/Chest: No Respiratory Distress, Lungs Clear, No Accessory Muscle Use Extremities: Normal Inspection, No Pedal Edema, Limited Range of Motion (due to pain of L shoulder). No: Normal Range of Motion, Non-Tender, Pedal Edema, Redness Neurological: Alert, Oriented, CN II-XII Intact, Normal Cognition, No Motor/Sensory Deficits Psychiatric: Normal Affect, Normal Mood Skin Exam: Warm, Dry, Intact, Normal Color, No Rash Course - Vital Signs Last Recorded V/S: Last Vital Signs Temp 36.3 C 08/31/20 01:09 Pulse 96 08/31/20 01:09 Resp 17 08/31/20 01:09 BP 158/95 H 08/31/20 01:09 Pulse Ox 95 08/31/20 01:09 - Orders/Labs/Meds Orders: Active Orders 24 hr Category Date Time Status Alum Hydrox/Mag Hydrox/Simeth [Mag-Al Plus] Med 08/31/20 01:18 Once 30 ml PO ONETIME ONE Medication Orders Al Hydroxide/Mg Hydroxide (Aluminum Hydroxide/Magnesium Hydroxide/Simethicone Susp 30 Ml Cup) 30 ml PO ONETIME ONE Stop: 08/31/20 01:19 Meds: Medications Generic Name Dose Route Start Last Admin Trade Name Freq PRN Reason Stop Dose Admin Al Hydroxide/Mg Hydroxide 30 ml 08/31/20 01:18 Aluminum Hydroxide/Magnesium Hydroxide/Simethicone Susp 30 Ml Cup PO 06/22 01:19 ONETIME ONE Departure - Departure Time of Disposition: 01:23 Disposition: Home, Self-Care 01 Condition: Fair Clinical Impression: Shoulder pain, left Qualifiers: Chronicity: unspecified Qualified Code(s): M25.512 - Pain in left shoulder - Discharge Information *PRESCRIPTION DRUG MONITORING PROGRAM REVIEWED*: No *COPY OF PRESCRIPTION DRUG MONITORING REPORT IN PATIENT KANWAL: No Instructions: Shoulder Pain, [id number] Referrals: PCP,None [Primary Care Provider] - Additional Instructions: Use [facility] as directed. Keep your appt with orthopedics. Drink ample water tonight to help protect your kidneys from harm from your overdose of ibuprofen. Don't take any more ibuprofen for 12 hrs now due to the dose you took. Sepsis Event Note (ED) - Evaluation Sepsis Screening Result: No Definite Risk - Focused Exam Vital Signs: Vital Signs Temp Pulse Resp BP Pulse Ox 08/31/20 01:09 36.3 C 96 17 158/95 H 95 08/31/20 01:08 36.3 C 96 17 158/95 H 95 - My Orders Last 24 Hours: My Active Orders 08/31/20 01:18 Alum Hydrox/Mag Hydrox/Simeth [Mag-Al Plus] 30 ml PO ONETIME ONE - Assessment/Plan Last 24 Hours: My Active Orders 08/31/20 01:18 Alum Hydrox/Mag Hydrox/Simeth [Mag-Al Plus] 30 ml PO ONETIME ONE
[2020-08-31 02:26] VITALS: BP 158/95; PULSE 96
== END 2020-08-31 01:32 | disposition home or self-care (01) ==
LOC: JP.ED 00:49
DX: M25.512 Pain in left shoulder (principal); G80.9 Cerebral palsy, unspecified; Z72.0 Tobacco use
CPT/HCPCS: 99282; 99283; A9270-GY

== ENCOUNTER 2020-10-18 01:34 | Emergency (ER) | payer MEDICARE ==
[2020-10-18 01:55] VITALS: BP 165/102; PULSE 97
--- NOTE | 2020-10-18 02:25 | EDM.PDOC ---
ED HPI GENERAL MEDICAL PROBLEM - General Chief Complaint: ENT Problem Stated Complaint: TOOTHACHE Time Seen by Provider: 10/18/20 02:10 Source of Information: Reports: Patient, Old Records, RN History Limitations: Reports: No Limitations - History of Present Illness INITIAL COMMENTS - FREE TEXT/NARRATIVE: 24 yo male here with dental pain. Sx's since last Friday. Has no dentist appt and has not been to the clinic for this. Is not taking anything OTC for pain. No fever. His last dentist appt was about 2 yrs ago. Admits to drinking a lot of soda pop. Onset: Sudden Onset Date: 10/13/20 Duration: Day(s):, Getting Worse Location: Reports: Face Quality: Reports: Ache Severity: Moderate Improves with: Reports: None Worsens with: Reports: Other (time) Context: Reports: Other (See HPI) Associated Symptoms: Denies: Fever/Chills, Nausea/Vomiting, Rash Treatments CLIENT ACCOUNT ASSISTANT: Reports: Other (see below) (none) right sided tooth pain Pain Score (Numeric/FACES): 3 - Related Data Allergies Allergy/AdvReac Type Severity Reaction Status Date / Time No Known Allergies Allergy Verified 10/18/20 01:49 Home Meds: Home Meds NK [No Known Home Meds] 01/03/18 [History] Past Medical History Cardiovascular History: Reports: Heart Murmur Respiratory History: Reports: Other (See Below) Other Respiratory History: RSV A BABY Gastrointestinal History: Reports: Gastritis, Helicobacter Pylori Musculoskeletal History: Reports: Other (See Below) Other Musculoskeletal History: CP Neurological History: Reports: Cerebral Palsy, Migraines Psychiatric History: Reports: Anxiety, Depression, Suicidal Ideation - Infectious Disease History Infectious Disease History: Reports: Helicobacter Pylori - Past Surgical History Head Surgeries/Procedures: Reports: None Cardiovascular Surgical History: Reports: Other (See Below) Other Cardiovascular Surgeries/Procedures: unknown heart surgery Respiratory Surgical History: Reports: None GI Surgical History: Reports: None Neurological Surgical History: Reports: None Musculoskeletal Surgical History: Reports: Other (See Below) Other Musculoskeletal Surgeries/Procedures:: LEG surgery Dermatological Surgical History: Reports: None Social & Family History - Family History Family Medical History: No Pertinent Family History - Caffeine Use Caffeine Use: Reports: Energy Drinks, Soda - Recreational Drug Use Recreational Drug Use: No - Living Situation & Occupation Living situation: Reports: Single, with Family (lives one block from the hospital.) ED ROS ENT - Review of Systems Review Of Systems: See Below Constitutional: Denies: Fever, Chills HEENT: Reports: Dental Pain Respiratory: Reports: No Symptoms Cardiovascular: Reports: No Symptoms Skin: Reports: No Symptoms Neurological: Reports: No Symptoms ED EXAM, ENT - Physical Exam Exam: See Below Exam Limited By: No Limitations General Appearance: Alert, WD/WN, No Apparent Distress Eye Exam: Bilateral Eye: Normal Inspection Ears: Normal External Exam, Normal Canal, Hearing Grossly Normal, Normal TMs Nose: Normal Inspection, No Blood Mouth/Throat: Normal Lips, Dental Pain, Other (dental decay along gum line on R premolars at site of his pain. ). No: Normal Teeth Head: No: Facial Swelling Neck: Normal Inspection. No: Lymphadenopathy (R), Lymphadenopathy (L) Respiratory/Chest: No Respiratory Distress, No Accessory Muscle Use Neurological: Alert, Oriented, Normal Cognition Psychiatric: Normal Affect, Normal Mood Skin: Warm, Dry, Intact, Normal Color, No Rash Course - Vital Signs Last Recorded V/S: Last Vital Signs Temp 36.2 C 10/18/20 01:54 Pulse 97 10/18/20 01:54 Resp 17 10/18/20 01:54 BP 165/102 H 10/18/20 01:54 Pulse Ox 96 10/18/20 01:54 Departure - Departure Time of Disposition: 14:25 Disposition: Home, Self-Care 01 Condition: Good Clinical Impression: Pain due to dental caries Clinical Impression: (Ruled Out): Pain, dental - Discharge Information *PRESCRIPTION DRUG MONITORING PROGRAM REVIEWED*: Not Applicable *COPY OF PRESCRIPTION DRUG MONITORING REPORT IN PATIENT KANWAL: Not Applicable Referrals: PCP,None [Primary Care Provider] - Additional Instructions: Take penicillin as directed. Take ibuprofen 600 mg every 6 hrs with food and acetaminophen up to 1000 mg every 6 hrs for pain relief. See a dentist ariadna for definitive care. Sepsis Event Note (ED) - Evaluation Sepsis Screening Result: No Definite Risk - Focused Exam Vital Signs: Vital Signs Temp Pulse Resp BP Pulse Ox 10/18/20 01:54 36.2 C 97 17 165/102 H 96 10/18/20 01:53 36.2 C 97 17 165/102 H 96
== END 2020-10-18 02:34 | disposition home or self-care (01) ==
LOC: JP.ED 01:34
DX: K02.9 Dental caries, unspecified (principal); G80.9 Cerebral palsy, unspecified
CPT/HCPCS: 99282

== ENCOUNTER 2020-11-26 13:23 | Emergency (ER) | payer MEDICARE ==
[2020-11-26 13:59] VITALS: BP 180/107; PULSE 123
--- NOTE | 2020-11-26 14:43 | EDM.PDOC ---
ED HPI GENERAL MEDICAL PROBLEM - General Chief Complaint: Lower Extremity Injury/Pain Stated Complaint: STUBBED TOE ON LEFT FOOT Time Seen by Provider: 11/26/20 14:30 Source of Information: Reports: Patient, Family, RN History Limitations: Reports: No Limitations - History of Present Illness INITIAL COMMENTS - FREE TEXT/NARRATIVE: About an hour prior to arrival, patient was chasing after cat this morning and stubbed left great toe. Significant swelling and redness at the base of the great toe and second digit. Patient is able to bear weight however this is painful. Mother wants to make sure that her toe is not broken. Onset: Today, Sudden Onset Date: 11/26/20 Onset Time: 13:00 Duration: Constant Location: Reports: Lower Extremity, Left (Great and second toe left foot) Quality: Reports: Ache, Throbbing Severity: Moderate Improves with: Reports: Cold Therapy Worsens with: Reports: None Context: Reports: Trauma (Stubbed toe) Associated Symptoms: Reports: No Other Symptoms Treatments RN BABY: Reports: Cold Therapy - Related Data Allergies Allergy/AdvReac Type Severity Reaction Status Date / Time No Known Allergies Allergy Verified 11/26/20 13:59 Home Meds: Home Meds Penicillin V Potassium 1 tab PO BID 11/26/20 [History] Past Medical History Cardiovascular History: Reports: Heart Murmur Respiratory History: Reports: Other (See Below) Other Respiratory History: RSV A BABY Gastrointestinal History: Reports: Gastritis, Helicobacter Pylori Musculoskeletal History: Reports: Other (See Below) Other Musculoskeletal History: CP Neurological History: Reports: Cerebral Palsy, Migraines Psychiatric History: Reports: Anxiety, Depression, Suicidal Ideation - Infectious Disease History Infectious Disease History: Reports: Helicobacter Pylori - Past Surgical History Head Surgeries/Procedures: Reports: None Cardiovascular Surgical History: Reports: Other (See Below) Other Cardiovascular Surgeries/Procedures: unknown heart surgery Respiratory Surgical History: Reports: None GI Surgical History: Reports: None Neurological Surgical History: Reports: None Musculoskeletal Surgical History: Reports: Other (See Below) Other Musculoskeletal Surgeries/Procedures:: LEG surgery Dermatological Surgical History: Reports: None Social & Family History - Family History Family Medical History: No Pertinent Family History - Caffeine Use Caffeine Use: Reports: Energy Drinks, Soda - Living Situation & Occupation Living situation: Reports: Single, with Family (lives one block from the hospital.) Review of Systems - Review of Systems Review Of Systems: See Below Musculoskeletal: Reports: Joint Pain (Left great and second toe, CMS intact), Joint Swelling (Left great and second toes) Skin: Reports: Erythema (Great toe and second digit left foot) Neurological: Reports: No Symptoms Psychiatric: Reports: No Symptoms ED EXAM, GENERAL - Physical Exam Exam: See Below Respiratory/Chest: No Respiratory Distress, Lungs Clear Cardiovascular: Normal Peripheral Pulses, Regular Rate, Rhythm Peripheral Pulses: 2+: Dorsalis Pedis (L), Dorsalis Pedis (R) Extremities: No Pedal Edema, Normal Capillary Refill, Joint Swelling (Base of left great and second toe), Redness Neurological: Alert, Oriented, CN II-XII Intact, Normal Cognition Psychiatric: Normal Affect, Normal Mood Skin Exam: Warm, Dry, Intact, Normal Color Course - Vital Signs Last Recorded V/S: Last Vital Signs Temp 36.4 C 11/26/20 14:04 Pulse 123 H 11/26/20 14:04 Resp 16 11/26/20 14:04 BP 180/107 H 11/26/20 14:04 Pulse Ox 100 11/26/20 14:04 - Orders/Labs/Meds Orders: Active Orders 24 hr Category Date Time Status Foot Comp Min 3V Lt [CR] Stat Exams 11/26/20 14:44 Taken - Radiology Interpretation Free Text/Narrative:: Foot x-ray shows no malalignment, no dislocation or fracture noted of the left foot. - Re-Assessments/Exams Free Text/Narrative Re-Assessment/Exam: 11/26/20 15:38 X-rays reviewed with patient and mother. Rice (rest ice compression and elevati on) to promote comfort. May use Tylenol or ibuprofen for pain. Departure - Departure Time of Disposition: 15:51 Disposition: Home, Self-Care 01 Condition: Good Clinical Impression: Sprain of toe, great, left - Discharge Information *PRESCRIPTION DRUG MONITORING PROGRAM REVIEWED*: Not Applicable *COPY OF PRESCRIPTION DRUG MONITORING REPORT IN PATIENT KANWAL: Not Applicable Instructions: Foot Sprain Referrals: PCP,None [Primary Care Provider] - Forms: ED Department Discharge Additional Instructions: Patient to rest ice compress and elevate foot to allow time for healing. May use Tylenol as appropriate for pain relief. Sepsis Event Note (ED) - Evaluation Sepsis Screening Result: No Definite Risk - Focused Exam Vital Signs: Vital Signs Temp Pulse Resp BP Pulse Ox 11/26/20 14:04 36.4 C 123 H 16 180/107 H 100 11/26/20 13:58 36.4 C 123 H 16 180/107 H 100 - My Orders Last 24 Hours: My Active Orders 11/26/20 14:44 Foot Comp Min 3V Lt [CR] Stat - Assessment/Plan Last 24 Hours: My Active Orders 11/26/20 14:44 Foot Comp Min 3V Lt [CR] Stat
--- NOTE | 2020-11-27 13:19 | CR ---
Foot Comp Min 3V Lt CLINICAL HISTORY: Injury FINDINGS: There is no acute fracture or dislocation within the foot. No destructive changes are present. IMPRESSION: No acute bony process.
== END 2020-11-26 15:50 | disposition home or self-care (01) ==
LOC: JP.ED 13:23
DX: S93.502A Unspecified sprain of left great toe, initial encounter (principal); W22.8XXA Striking against or struck by other objects, initial encounter
CPT/HCPCS: 73630-26-LT; 73630-LT; 99282; 99283-25

== ENCOUNTER 2021-04-02 11:19 | Emergency (ER) | payer MEDICARE ==
[2021-04-02] MEDS ORDERED: Ketorolac 30 MG/ML SDV IM ONE (12:07)
--- NOTE | 2021-04-02 12:15 | EDM.PDOC ---
ED HPI GENERAL MEDICAL PROBLEM - General Chief Complaint: Upper Extremity Injury/Pain Stated Complaint: FELL/LEFT ARM ISSUE Time Seen by Provider: 04/02/21 11:55 Source of Information: Reports: Patient, Old Records History Limitations: Reports: No Limitations - History of Present Illness INITIAL COMMENTS - FREE TEXT/NARRATIVE: 25 yo male with cerebral palsy that generally affects his R side presents today due to pain in the L shoulder and new numbness in the L arm. He has had some numbness in the posterior L shoulder/upper back for a few weeks, but the arm numbness is new. He has not been to his [place] provider for this. He has seen neurology in the past, but not since moving from [place] to [place]. No self tx so far today for his shoulder pain. There was no new injury that he recalls. No neck pain. He does smoker cigarettes, does not normally have a problem with HTN. 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: Reports: Other (see below) (none) Left Shoulder Pain Score (Numeric/FACES): 7 - Related Data Allergies Allergy/AdvReac Type Severity Reaction Status Date / Time No Known Allergies Allergy Verified 04/02/21 11:54 Home Meds: Home Meds NK [No Known Home Meds] 04/02/21 [History] Past Medical History HEENT History: Reports: Impaired Vision Cardiovascular History: Reports: Heart Murmur Respiratory History: Reports: Other (See Below) Other Respiratory History: RSV A BABY Gastrointestinal History: Reports: Gastritis, Helicobacter Pylori Musculoskeletal History: Reports: Other (See Below) Other Musculoskeletal History: CP Neurological History: Reports: Cerebral Palsy, Migraines Psychiatric History: Reports: Anxiety, Depression, Suicidal Ideation - Infectious Disease History Infectious Disease History: Reports: Helicobacter Pylori - Past Surgical History Head Surgeries/Procedures: Reports: None Respiratory Surgical History: Reports: None Musculoskeletal Surgical History: Reports: Other (See Below) Other Musculoskeletal Surgeries/Procedures:: LEG surgery to lengthen achilles tendon Social & Family History - Family History Family Medical History: No Pertinent Family History - Tobacco Use Tobacco Use Status *Q: Light Tobacco User Years of Tobacco use: 2 Packs/Tins Daily: 0.5 - Caffeine Use Caffeine Use: Reports: Coffee, Energy Drinks, Soda, Tea - Alcohol Use Days Per Week of Alcohol Use: 3 Number of Drinks Per Day: 4 Total Drinks Per Week: 12 - Recreational Drug Use Recreational Drug Use: No - Living Situation & Occupation Living situation: Reports: Single, with Family (lives one block from the hospital.) Review of Systems - Review of Systems Review Of Systems: See Below Constitutional: Reports: No Symptoms Eyes: Reports: No Symptoms Ears: Reports: No Symptoms Nose: Reports: No Symptoms Mouth/Throat: Reports: No Symptoms Respiratory: Reports: No Symptoms Cardiovascular: Reports: No Symptoms GI/Abdominal: Reports: No Symptoms Genitourinary: Reports: No Symptoms Musculoskeletal: Reports: Shoulder Pain (Left) Skin: Reports: No Symptoms Neurological: Reports: Numbness (entire L arm(new) and posterior L shoulder and upper left back( subacute)) Psychiatric: Reports: No Symptoms ED EXAM, GENERAL - Physical Exam Exam: See Below Exam Limited By: No Limitations General Appearance: Alert, WD/WN, No Apparent Distress Eye Exam: Bilateral Eye: Normal Inspection, PERRL Ears: Normal External Exam, Normal Canal, Hearing Grossly Normal Ear Exam: Bilateral Ear: Auricle Normal, Canal Normal Nose: Normal Inspection, No Blood Throat/Mouth: Normal Inspection, Normal Lips, Normal Oropharynx, Normal Voice, No Airway Compromise Head: Atraumatic, Normocephalic Neck: Normal Inspection Respiratory/Chest: No Respiratory Distress, Lungs Clear, Normal Breath Sounds, No Accessory Muscle Use Cardiovascular: Regular Rate, Rhythm, No Edema Extremities: Normal Inspection, Limited Range of Motion. No: Normal Range of Motion (moves L arm slowly and stiffly), Non-Tender (is tender in area of the L A/C joint), Pedal Edema, Joint Swelling, Redness Neurological: Alert, Oriented, CN II-XII Intact, Normal Cognition, No Motor/Sensory Deficits Psychiatric: Normal Affect, Normal Mood Skin Exam: Warm, Dry, Intact, Normal Color, No Rash Course - Vital Signs Last Recorded V/S: Last Vital Signs Temp 36.8 C 04/02/21 11:53 Pulse 85 04/02/21 12:19 Resp 20 04/02/21 12:19 BP 155/88 H 04/02/21 12:19 Pulse Ox 98 04/02/21 12:19 - Orders/Labs/Meds Meds: Medications Discontinued Medications Generic Name Dose Route Start Last Admin Trade Name Bayron PRN Reason Stop Dose Admin Ketorolac Tromethamine 30 mg 04/02/21 12:07 04/02/21 12:14 Ketorolac 30 Mg/Ml Sdv IM 04/02/21 12:08 30 mg ONETIME ONE Administration - Radiology Interpretation Free Text/Narrative:: Head CT scan without contrast-Nothing acute CT Results Date: 04/02/21 Departure - Departure Time of Disposition: 13:00 Disposition: Home, Self-Care 01 Condition: Fair Clinical Impression: Tobacco use, Left upper extremity numbness HTN (hypertension) Qualifiers: Hypertension type: unspecified Qualified Code(s): I10 - Essential (primary) hypertension - Discharge Information *PRESCRIPTION DRUG MONITORING PROGRAM REVIEWED*: Not Applicable *COPY OF PRESCRIPTION DRUG MONITORING REPORT IN PATIENT KANWAL: Not Applicable Instructions: Smoking Tobacco Information, Adult, Hypertension, Adult, [id number] Referrals: PCP,None [Primary Care Provider] - Forms: ED Department Discharge Additional Instructions: We are working on a neurology referral for you currently, if you don't hear before you leave today we will call you with your appt details. Smoking raises your risk of stroke, as well as anything that raises your blood pressure. I would like you to see your provider soon for a blood pressure check, if it remains elevated you may need meds for this. We sent your CT images today to [facility] for them to have on hand for your appt. Today's CT scan did not show anything new. This implies either that your brain insult was small or that it was too new to show up yet. The neurologist may want to perform an MRI on you when you are seen, that will be up to him at that time. Use acetaminophen up to 1000 mg every 6 hrs for your left shoulder pain. Discuss with your chief medical officer your desire to go to [place] or a similar facility for detox due to your recent meth use. Return as needed. Sepsis Event Note (ED) - Evaluation Sepsis Screening Result: No Definite Risk - Focused Exam Vital Signs: Vital Signs Temp Pulse Resp BP Pulse Ox 04/02/21 12:19 85 20 155/88 H 98 04/02/21 11:53 36.8 C 96 16 172/91 H 96 04/02/21 11:47 36.8 C 96 16 172/91 H 96
[2021-04-02 12:20] VITALS: BP 155/88; PULSE 85
--- NOTE | 2021-04-02 12:53 | CT ---
Head wo Cont CLINICAL HISTORY: New left arm numbness, history of cerebral palsy COMPARISON: None TECHNIQUE: Transverse scans were obtained from the base of the skull through the vertex without IV contrast on a multislice, multidetector CT scanner. Auto dosage reduction and iterative reconstruction techniques employed. FINDINGS: No focal abnormal parenchymal density is identified. There is some asymmetry in the lateral ventricles with some ex vacuo dilatation of the right. This is of remote chronology and may relate to the patient's history of cerebral palsy.. There is no mass effect, hemorrhage, or extraaxial collection. The basal cisterns and sulci over the convexities are normal. IMPRESSION: Mild ex vacuo dilatation of the left lateral ventricle of remote chronology No acute intracranial process
== END 2021-04-02 13:28 | disposition home or self-care (01) ==
LOC: JP.ED 11:19
DX: R20.0 Anesthesia of skin (principal); I10 Essential (primary) hypertension; Z72.0 Tobacco use
CPT/HCPCS: 70450; 70450-26; 96372; 99284-25; J1885

== ENCOUNTER 2021-08-25 05:12 | Emergency (ER) | payer MEDICARE ==
[2021-08-25 08:59] VITALS: BP 102/66; PULSE 75
== END 2021-08-25 09:35 | disposition home or self-care (01) ==
LOC: JP.ED 05:12
DX: F10.129 Alcohol abuse with intoxication, unspecified (principal); F15.10 Other stimulant abuse, uncomplicated; F14.10 Cocaine abuse, uncomplicated; Y90.7 Blood alcohol level of 200-239 mg/100 ml; Z20.822 Contact with and (suspected) exposure to COVID-19
CPT/HCPCS: 36415; 80053; 80305-QW; 80307; 81001; 85025; 93005; 93010; 99283; 99284-25; U0002